=== PATIENT | male | born 1960 | race African-American/Black ===

== ENCOUNTER 2017-11-26 11:32 | Day surgery (SDC) | payer OTHER ==
[~2017-11-26] VITALS: Ht 180.3 cm; Wt 82.0 kg
[~2017-11-26 11:32] MED LIST: ADVAIR 250/501 DISK IH; AMITRIPTYLINE100 MG PO; ASPIRIN325 MG PO; Advair HFA 115/21 IH; Benadryl PO; CORDARONE200 MG PO; COUMADIN5 MG PO; Colace PO; ELAVIL100 MG PO; ELAVIL50 MG PO; Ecotrin PO; Epipen Adult Autoinj IM; FLOVENT 11120 INHALA IH; FUROSEMIDE20 MG PO; FUROSEMIDE40 MG PO; K-DUR20 MEQ PO; KAON-CL 1010 MEQ PO; KLOR-CON M2020 MEQ PO; LASIX20 MG; LASIX20 MG PO; LEVAQUIN500 MG PO; LIDODERM 5% P1 PATCH TD; LISINOPRIL5 MG PO; LITE COAT ASPI325 M1 PO; LOPRESSOR50 MG PO; METOPROLOL SUCC25 MG PO; METOPROLOL SUCC50 MG PO; METOPROLOL TART50 MG PO; Medrol Dosepak PO; NEURONTIN100 MG PO; NICORELIEF2 MG BC; NICOTINE PATCH1 EAC2 TD; OXECTA5 MG PO; OXYCODONE HCL5 MG PO; PACERONE200 MG PO; PREDNISONE20 MG PO; PRINIVIL5 MG PO; PROTONIX40 MG PO; PROVENTIL HFA6.7 GM IH; PROVENTIL17 GM IH; Proventil,Ventolin H IH; RANITIDINE HCL150 MG PO; ROBITUSSIN DM118 ML PO; SENNA-TIME S T1 EACH PO; TAMIFLU75 MG PO; TESSALON PERLE100 MG PO; TRAMADOL HCL50 MG PO; ULTRAM50 MG PO; VENTOLIN HFA18 GM IH; ZANTAC150 MG PO; Zithromax PO; predniSONE PO
[2017-11-26 20:08] VITALS: BP 122/69
[2017-11-27 00:05] VITALS: BP 111/65
[2017-11-27 03:20] VITALS: BP 116/72
== END 2017-11-27 15:14 | disposition home or self-care (01) ==
LOC: CATH 11:32 → ENRESERV 15:34 → 4EAST 15:37 → 2SOUTH 15:37 → ENRESERV 17:15 → 4EAST 19:59
DX: I44.2 Atrioventricular block, complete (principal); I11.0 Hypertensive heart disease with heart failure; I50.43 Acute on chronic combined systolic (congestive) and diastolic (congestive) heart failure; J45.909 Unspecified asthma, uncomplicated; I42.0 Dilated cardiomyopathy; I27.20 Pulmonary hypertension, unspecified; F10.21 Alcohol dependence, in remission; F17.210 Nicotine dependence, cigarettes, uncomplicated; Z96.643 Presence of artificial hip joint, bilateral; Z95.3 Presence of xenogenic heart valve
CPT/HCPCS: 71045; 93005; 94640; 94640 76; 99202; C1722; C1894; C1895; G0378; J0690; J1200; J2250; J2270; J3010; S0020

== ENCOUNTER 2018-02-18 11:32 | Inpatient (IN) | payer OTHER ==
[~2018-02-18] VITALS: Ht 180.3 cm; Wt 85.9 kg
[~2018-02-18 11:32] MED LIST changes: -ASPIRIN325 MG PO; -METOPROLOL TART50 MG PO
[2018-02-18 12:10] LABS: HEMATOCRIT 38.2 % (38.0-50.0); HEMOGLOBIN 13.7 G/DL (12.5-16.6); MCH 32.2 PG (29.0-34.0); MCHC 35.9 G/DL (30.0-36.0); MCV 89.9 FL (86-99); PLATELET COUNT 179 K/uL (156-360); RBC DIS.WIDTH-CV 12.2 % (11.8-14.6); RED BLOOD COUNT 4.25 M/uL (4.00-5.50); WHITE BLOOD COUNT 14.5 K/uL (4.1-10.2)
[2018-02-18 12:18] LABS: CHLORIDE 99 mEq/L (99-109); SODIUM 134 mEq/L (136-147)
[2018-02-18 12:20] LABS: GLUCOSE 129 mg/dL (70-99)
[2018-02-18 12:23] LABS: CREATININE 0.8 mg/dL (0.6-1.3); GFR ESTIMATE (CALCULATED) > 59 mL/min/ (58.99-99999)
[2018-02-18 12:24] LABS: UREA NITROGEN (BUN) 9 mg/dL (9-23)
[2018-02-18 14:16] LABS: TROP-I INTERPRETATION NEGATIVE; TROPONIN-I 0.01 ng/mL (0.0-0.30)
[2018-02-18 21:21] VITALS: BP 111/66
[2018-02-18 23:37] VITALS: BP 138/73
[2018-02-19 03:56] VITALS: BP 141/71
[2018-02-19 06:23] LABS: BASOPHIL (%) 0.4 % (0-1); BASOPHIL COUNT 0.1 K/uL (0-0.1); EOSINOPHIL (%) 0.4 % (0-5); EOSINOPHIL COUNT 0.1 K/uL (0-0.3); HEMATOCRIT 41.6 % (38.0-50.0); HEMOGLOBIN 14.4 G/DL (12.5-16.6); IMMATURE GRANULOCYTE (%) 0.5 % (0.0-0.7); LYMPHOCYTE (%) 10.9 % (15-42); MCH 31.8 PG (29.0-34.0); MCHC 34.6 G/DL (30.0-36.0); MCV 91.8 FL (86-99); MONOCYTE (%) 8.3 % (3-12); MONOCYTE COUNT 1.5 K/uL (0-0.8); NEUTROPHIL (%) 79.5 % (45-76); NEUTROPHIL COUNT 14.6 K/uL (1.8-6.4); PLATELET COUNT 168 K/uL (156-360); RBC DIS.WIDTH-CV 12.6 % (11.8-14.6); RBC DIS.WIDTH-SD 42.3 % (39-53); RED BLOOD COUNT 4.53 M/uL (4.00-5.50); WHITE BLOOD COUNT 18.4 K/uL (4.1-10.2)
[2018-02-19 06:36] LABS: CHLORIDE 101 MEQ/L (99-109); CREATININE 0.8 MG/DL (0.6-1.3); GFR ESTIMATE (CALCULATED) > 59 mL/min/ (58.99-99999); POTASSIUM 4.2 MEQ/L (3.7-5.4); SODIUM 134 MEQ/L (136-147); UREA NITROGEN (BUN) 9 mg/dL (9-23)
[2018-02-19 06:37] LABS: GLUCOSE 95 mg/dL (70-99)
[2018-02-19 07:53] VITALS: BP 125/73
[2018-02-19 11:12] VITALS: BP 111/69
[2018-02-19 12:12] LABS: APPEARANCE CLEAR ((CLEAR)); BILIRUBIN NEGATIVE; BLOOD NEGATIVE; COLOR YELLOW ((YELLOW)); GLUCOSE (STRIP) NEGATIVE; KETONES NEGATIVE; LEUKOCYTES NEGATIVE; NITRITE NEGATIVE; PROTEIN (STRIP) 30; SPECIFIC GRAVITY 1.017 (1.000-1.030); UCUL ADDED? NO
[2018-02-19 15:29] VITALS: BP 109/58
[2018-02-19 20:00] VITALS: BP 115/61
[2018-02-20 00:33] VITALS: BP 110/59
[2018-02-20 03:40] VITALS: BP 116/71
[2018-02-20 08:00] VITALS: BP 112/71
[2018-02-20 10:36] LABS: HEMATOCRIT 39.4 % (38.0-50.0); HEMOGLOBIN 13.3 G/DL (12.5-16.6); MCH 31.1 PG (29.0-34.0); MCHC 33.8 G/DL (30.0-36.0); MCV 92.1 FL (86-99); PLATELET COUNT 169 K/uL (156-360); RBC DIS.WIDTH-CV 12.3 % (11.8-14.6); RBC DIS.WIDTH-SD 41.8 % (39-53); RED BLOOD COUNT 4.28 M/uL (4.00-5.50); WHITE BLOOD COUNT 7.3 K/uL (4.1-10.2)
[2018-02-20 16:00] VITALS: BP 119/65
[2018-02-21] VITALS: BP 113/71
[2018-02-21 07:56] VITALS: BP 109/68
[2018-02-21] MEDS ORDERED: STIOLTO RESPIMAT4 GM IH (08:05)
[2018-02-21] MEDS ORDERED: LEVAQUIN750 MG PO (08:05)
== END 2018-02-21 11:50 | disposition home or self-care (01) | DRG 190 ==
LOC: EME 11:32 → 5SOUTH 19:34 → EDOF 19:34 → ENRESERV 19:43 → 5SOUTH 20:49
PROVIDERS: Hospitalist; Internal Medicine
DX: J44.0 Chronic obstructive pulmonary disease with (acute) lower respiratory infection (principal); J18.9 Pneumonia, unspecified organism; Z95.2 Presence of prosthetic heart valve; Z96.643 Presence of artificial hip joint, bilateral; I42.9 Cardiomyopathy, unspecified; Z95.810 Presence of automatic (implantable) cardiac defibrillator; Z95.1 Presence of aortocoronary bypass graft; F17.210 Nicotine dependence, cigarettes, uncomplicated
CPT/HCPCS: 71046; 71275; 74176; 80048; 81003; 83605; 84484; 85025; 85027; 85379; 87040; 87070; 87205; 87449; 93005; 94640; 94640 76; 94760; 99202; 99281; 99285; J0456; J0696; J1650; J1940; J7030